=== PATIENT | male | born 1990 | race Caucasian/White ===

== ENCOUNTER 2022-08-05 12:24 | Emergency (ER) | payer SELFPAY ==
[~2022-08-05] VITALS: Ht 180.3 cm; Wt 97.7 kg
[2022-08-05 12:28] VITALS: BP 130/82
[2022-08-05] MEDS ORDERED: LIDOCAINE 1% 10 ML VIAL SQ ONE (13:00)
[2022-08-05] MEDS ORDERED: PERTUSS(ACELL),DIPH,TET VAC/PF 0.5 ML SYRINGE IM. ONE (13:15)
== END 2022-08-05 13:39 | disposition home or self-care (01) ==
LOC: EMS 12:30
DX: S61.211A Laceration without foreign body of left index finger without damage to nail, initial encounter (principal); F17.210 Nicotine dependence, cigarettes, uncomplicated; Z90.49 Acquired absence of other specified parts of digestive tract; W25.XXXA Contact with sharp glass, initial encounter; Y93.89 Activity, other specified; Y92.89 Other specified places as the place of occurrence of the external cause; Y99.8 Other external cause status
CPT/HCPCS: 99283; 90715; 90471; 12002; J3490

== ENCOUNTER 2022-08-19 11:09 | Emergency (ER) | payer SELFPAY ==
[~2022-08-19] VITALS: Ht 182.9 cm; Wt 95.5 kg
[2022-08-19 11:11] VITALS: BP 159/74
== END 2022-08-19 11:36 | disposition home or self-care (01) ==
LOC: EMS 11:10
DX: S61.219D Laceration without foreign body of unspecified finger without damage to nail, subsequent encounter (principal); F17.210 Nicotine dependence, cigarettes, uncomplicated; Z90.49 Acquired absence of other specified parts of digestive tract; Z48.02 Encounter for removal of sutures; W25.XXXD Contact with sharp glass, subsequent encounter
CPT/HCPCS: 99282; Z7502